=== PATIENT | male | born 1975 | race Two or more races ===

== ENCOUNTER 2019-12-30 17:36 | Inpatient (IN) | payer MEDICAID ==
[~2019-12-30] VITALS: Ht 180.3 cm; Wt 101.2 kg
[2019-12-30 18:49] LABS: BASOPHILS % (AUTO) 0.9 % (0.0-2.0); EOSINOPHILS % (AUTO) 0.4 % (1.0-6.0); HEMATOCRIT 48.9 % (41-53); LYMPHOCYTES # (AUTO) 3.1 K/uL (1.0-4.8); LYMPHOCYTES % (AUTO) 28.8 % (22.0-44.0); MEAN CORPUSCULAR HEMOGLOBIN 31.3 pg (26.0-34.0); MEAN CORPUSCULAR HGB CONC 34.8 G/dL (31.0-37.0); MEAN CORPUSCULAR VOLUME 90 fL (80-100); MONOCYTES # (AUTO) 0.6 K/uL (0.1-1.0); MONOCYTES % (AUTO) 5.3 % (2.0-9.0); NEUTROPHILS # (AUTO) 7.1 K/uL (1.8-7.7); NEUTROPHILS % (AUTO) 64.6 % (40.0-70.0); PLATELET COUNT (AUTO) 208 K/uL (150-450); RED BLOOD CELL COUNT(AUTO) 5.43 MIL/uL (4.50-5.90); RED CELL DISTRIBUTION WIDTH 12.5 % (11.5-14.5)
[2019-12-30] MEDS ORDERED: ATOR40TA71 PO (18:55)
[2019-12-30] MEDS ORDERED: METF-960 PO (18:55)
[2019-12-30] MEDS ORDERED: GABA-583 PO (18:55)
[2019-12-30] MEDS ORDERED: DIPH25CA85 PO (18:55)
[2019-12-30] MEDS ORDERED: OMEP20 PO (18:55)
[2019-12-30] MEDS ORDERED: LISI-657 PO (18:55)
[2019-12-30] MEDS ORDERED: FENO50CA4 PO (18:55)
[2019-12-30 19:00] LABS: ANION GAP 9 mmol/L (8-16); CALCIUM, TOTAL 9.3 mg/dL (8.8-10.5); CARBON DIOXIDE 24 mmol/L (22-29); CHLORIDE 102 mmol/L (98-107); CREATININE 1.13 mg/dL (0.60-1.30); GLOMERULAR FILTR. RATE CALC > 60 mL/min (>60); GLUCOSE,RANDOM 247 mg/dL (70-110); POTASSIUM 3.4 mmol/L (3.5-5.1); SODIUM SERUM 135 mmol/L (136-145); UREA NITROGEN, BLOOD 7 mg/dL (7-18)
[2019-12-30 19:07] LABS: ALANINE AMINOTRANSFERASE 21 U/L (12-78); ALBUMIN 3.9 g/dL (3.4-5.0); ALKALINE PHOSPHATASE 93 U/L (46-116); ASPARTATE AMINOTRANSFERASE 15 U/L (15-37); BILIRUBIN,TOTAL 0.7 mg/dL (0.1-1.0); TOTAL PROTEIN, SERUM 7.3 g/dL (6.4-8.2)
[2019-12-30 20:30] LABS: AMPHET/METH SCREEN,URINE POSITIVE (NEGATIVE); BARBITURATE SCREEN, URINE NEGATIVE (NEGATIVE); BENZODIAZEPINES SCREEN,URINE NEGATIVE (NEGATIVE); CANNABINOID SCREEN,URINE NEGATIVE (NEGATIVE); COCAINE SCREEN,URINE NEGATIVE (NEGATIVE); METHADONE SCREEN, URINE NEGATIVE (NEGATIVE); OPIATE SCREEN,URINE NEGATIVE (NEGATIVE)
[2019-12-30] MEDS ORDERED: LORazepam 1 MG TABLET PO ONE (20:30)
[2019-12-30] MEDS ORDERED: MetFORMIN HCL 500 MG TABLET PO ONE (20:30)
[2019-12-30] MEDS ORDERED: ZOLPIDEM TARTRATE 10 MG TABLET PO PRN (20:30)
[2019-12-30] MEDS ORDERED: LORazepam 2 MG TABLET PO PRN (20:30)
[2019-12-30] MEDS ORDERED: OLANZapine 5 MG TABLET PO ONE (20:30)
[2019-12-30] MEDS ORDERED: INSULIN REGULAR, HUMAN 100 UNITS/ML SQ ONE (20:30)
[2019-12-30] MEDS ORDERED: OLANZapine 5 MG RAPDIS TABLET PO PRN (20:30)
[2019-12-30 20:38] LABS: PHENCYCLIDINE SCREEN,URINE NEGATIVE (NEGATIVE)
[2019-12-30 21:14] LABS: COVID AG,FIA SOURCE NASOPHARYNGEAL
[2019-12-31] MEDS ORDERED: ONDANSETRON HCL 4 MG TABLET PO PRN (07:45)
[2019-12-31] MEDS ORDERED: ALBUTEROL SULFATE HFA 90 MCG/PUFF 8 GM INHALER IH PRN (07:45)
[2019-12-31] MEDS ORDERED: POTASSIUM CHLORIDE 20 MEQ ER TABLET PO ONE (07:45)
[2019-12-31] MEDS ORDERED: IBUPROFEN 600 MG TABLET PO PRN (07:45)
[2019-12-31] MEDS ORDERED: BACITRACIN 28 GM OINTMENT TP PRN (07:45)
[2019-12-31] MEDS ORDERED: GLUCAGON,HUMAN RECOMBINANT 1 MG VIAL IM PRN (07:45)
[2019-12-31] MEDS ORDERED: DOCUSATE SODIUM 100 MG CAPSULE PO PRN (07:45)
[2019-12-31] MEDS ORDERED: CloNIDine HCL 0.1 MG TABLET PO PRN (07:45)
[2019-12-31] MEDS ORDERED: PETROLATUM,WHITE 28 GM JELLY TP PRN (07:45)
[2019-12-31] MEDS ORDERED: LOPERAMIDE HCL 2 MG CAPSULE PO PRN (07:45)
[2019-12-31] MEDS ORDERED: OMEPRAZOLE 20 MG CAPSULE PO PRN (07:45)
[2019-12-31] MEDS ORDERED: ACETAMINOPHEN 325 MG TABLET PO PRN (07:45)
[2019-12-31] MEDS ORDERED: MAGNESIUM HYDROXIDE SUSPENSION 30 ML UDCUP PO PRN (07:45)
[2019-12-31] MEDS ORDERED: MAG HYDROX/AL HYDROX/SIMETH ES 30 ML SUSPENSION UDCUP PO PRN (07:45)
[2019-12-31] MEDS ORDERED: BENZOCAINE/MENTHOL LOZENGE PO PRN (07:45)
[2019-12-31] MEDS: ATORVASTATIN CALCIUM 40 MG TABLET PO SCH (09:04)
[2019-12-31 10:00] VITALS: BP 117/84
[2019-12-31] MEDS: LISINOPRIL 10 MG TABLET PO SCH (10:01)
[2019-12-31] MEDS: HYDROCHLOROTHIAZIDE 25 MG TABLET PO SCH (10:02)
[2019-12-31] MEDS: INSULIN LISPRO 100 UNITS/ML SQ PRN ×3 (11:12→21:10)
[2019-12-31 11:27] LABS: GLUCOMETER DEV NAME(LOC) BV2S.; GLUCOSE,POINT OF CARE 188 MG/DL (70-110)
[2019-12-31] MEDS ORDERED: INFLUENZA VIRUS VACCINE QVS 2020-21 (6MO+)/PF 60 MCG/0.5 ML SYRINGE IM ONE (13:30)
[2019-12-31] MEDS: FENOFIBRATE 48 MG TABLET PO SCH (16:29)
[2019-12-31 16:30] VITALS: BP 109/78
[2019-12-31 16:39] LABS: GLUCOMETER DEV NAME(LOC) BV2S.; GLUCOSE,POINT OF CARE 187 MG/DL (70-110)
[2019-12-31] MEDS: MetFORMIN HCL 500 MG TABLET PO SCH (16:51)
[2019-12-31] MEDS ORDERED: GuaiFENesin/D-METHORPHAN [SUGAR-FREE] 200-20MG/10 ML SYRUP UDCUP PO PRN (17:00)
[2019-12-31] MEDS: THIAMINE 100 MG TABLET PO SCH (17:00)
[2019-12-31] MEDS ORDERED: HydrOXYzine PAMOATE 50 MG CAPSULE PO PRN (17:00)
[2019-12-31] MEDS: OLANZapine 5 MG RAPDIS TABLET PO SCH (20:52)
[2019-12-31 22:05] LABS: GLUCOMETER DEV NAME(LOC) BV2S.; GLUCOSE,POINT OF CARE 207 MG/DL (70-110)
[2020-01-01 06:07] VITALS: BP 127/77
[2020-01-01 06:10] LABS: GLUCOMETER DEV NAME(LOC) BV2S.; GLUCOSE,POINT OF CARE 172 MG/DL (70-110)
[2020-01-01] MEDS: INSULIN LISPRO 100 UNITS/ML SQ PRN ×3 (06:34→16:56)
[2020-01-01 08:08] VITALS: BP 105/68
[2020-01-01 09:09] LABS: CHOL/HDL RATIO 3.9 (4.2-7.3); FREE T4 (FREE THYROXINE) 1.34 ng/dL (0.76-1.46); POTASSIUM 3.3 mmol/L (3.5-5.1); THYROID STIMULATING HORMONE 0.4 uIU/mL (0.36-3.74)
[2020-01-01] MEDS: OMEGA-3/DHA/EPA/FISH OIL 1,000 MG CAPSULE PO SCH (10:07)
[2020-01-01] MEDS: LISINOPRIL 10 MG TABLET PO SCH (10:08)
[2020-01-01] MEDS: HYDROCHLOROTHIAZIDE 25 MG TABLET PO SCH (10:08)
[2020-01-01] MEDS: FLUoxetine HCL 20 MG CAPSULE PO SCH (10:08)
[2020-01-01] MEDS: FOLIC ACID 1 MG TABLET PO SCH (10:08)
[2020-01-01] MEDS: MULTIVITAMINS WITH MINERALS, THERAPEUTIC TABLET PO SCH (10:09)
[2020-01-01] MEDS: THIAMINE 100 MG TABLET PO SCH ×2 (10:09→16:55)
[2020-01-01] MEDS: ATORVASTATIN CALCIUM 40 MG TABLET PO SCH (10:09)
[2020-01-01] MEDS: NALTREXONE HCL 50 MG TABLET PO SCH (10:09)
[2020-01-01] MEDS: FENOFIBRATE 48 MG TABLET PO SCH (10:20)
[2020-01-01] MEDS ORDERED: PALIPERIDONE PALMITATE 234 MG/1.5 ML SYRINGE IM ONE (14:45)
[2020-01-01 16:07] LABS: GLUCOMETER DEV NAME(LOC) BV2S.; GLUCOSE,POINT OF CARE 228 MG/DL (70-110)
[2020-01-01 16:07] LABS: GLUCOMETER DEV NAME(LOC) BV2S.; GLUCOSE,POINT OF CARE 188 MG/DL (70-110)
[2020-01-01 16:29] VITALS: BP 109/74
[2020-01-01] MEDS: MetFORMIN HCL 500 MG TABLET PO SCH (16:55)
[2020-01-01 16:58] LABS: GLUCOMETER DEV NAME(LOC) BV2S.; GLUCOSE,POINT OF CARE 214 MG/DL (70-110)
[2020-01-01] MEDS: OLANZapine 5 MG RAPDIS TABLET PO SCH (21:06)
[2020-01-01 22:49] LABS: GLUCOMETER DEV NAME(LOC) BV2S.; GLUCOSE,POINT OF CARE 137 MG/DL (70-110)
[2020-01-02 00:24] VITALS: BP 114/72
[2020-01-02 06:17] LABS: GLUCOMETER DEV NAME(LOC) BV2S.; GLUCOSE,POINT OF CARE 166 MG/DL (70-110)
[2020-01-02] MEDS: INSULIN LISPRO 100 UNITS/ML SQ PRN ×2 (06:56→12:19)
[2020-01-02] MEDS ORDERED: HYDR-1475 PO (08:06)
[2020-01-02] MEDS ORDERED: NALT50TA6 PO (08:06)
[2020-01-02] MEDS ORDERED: FLUO-191 PO ×2 (08:06→11:44)
[2020-01-02] MEDS ORDERED: OLAN5TAB40 PO (08:06)
[2020-01-02 08:08] VITALS: BP 114/70
[2020-01-02] MEDS: FOLIC ACID 1 MG TABLET PO SCH (09:31)
[2020-01-02] MEDS: OMEGA-3/DHA/EPA/FISH OIL 1,000 MG CAPSULE PO SCH (09:31)
[2020-01-02] MEDS: ATORVASTATIN CALCIUM 40 MG TABLET PO SCH (09:31)
[2020-01-02] MEDS: LISINOPRIL 10 MG TABLET PO SCH (09:32)
[2020-01-02] MEDS: FLUoxetine HCL 20 MG CAPSULE PO SCH (09:32)
[2020-01-02] MEDS: NALTREXONE HCL 50 MG TABLET PO SCH (09:32)
[2020-01-02] MEDS: HYDROCHLOROTHIAZIDE 25 MG TABLET PO SCH (09:32)
[2020-01-02] MEDS: THIAMINE 100 MG TABLET PO SCH (09:33)
[2020-01-02] MEDS: MULTIVITAMINS WITH MINERALS, THERAPEUTIC TABLET PO SCH (09:33)
[2020-01-02] MEDS: FENOFIBRATE 48 MG TABLET PO SCH (09:33)
[2020-01-02 11:44] LABS: GLUCOMETER DEV NAME(LOC) BV2S.; GLUCOSE,POINT OF CARE 255 MG/DL (70-110)
[2020-01-02] MEDS ORDERED: PALI117D IM (11:44)
[2020-01-02] MEDS ORDERED: NALT50TA PO (11:44)
[2020-01-02] MEDS ORDERED: OMEG-135 PO (11:44)
[2020-01-02] MEDS ORDERED: PALI156D IM (11:44)
== END 2020-01-02 14:20 | disposition home or self-care (01) | DRG 750 ==
LOC: EMS 17:36 → 3EI 20:18 → UNDOADMIN 20:18 → B2S 20:18
PROVIDERS: ADMIT Psychiatry & Neurology Psychiatry; ATTEND Psychiatry & Neurology Psychiatry
DX: F25.9 Schizoaffective disorder, unspecified (principal); E11.65 Type 2 diabetes mellitus with hyperglycemia; E78.00 Pure hypercholesterolemia, unspecified; E78.5 Hyperlipidemia, unspecified; F15.10 Other stimulant abuse, uncomplicated; I10 Essential (primary) hypertension; I25.10 Atherosclerotic heart disease of native coronary artery without angina pectoris; R45.851 Suicidal ideations; K21.9 Gastro-esophageal reflux disease without esophagitis; Z20.828 Contact with and (suspected) exposure to other viral communicable diseases; E66.9 Obesity, unspecified; E87.6 Hypokalemia; G47.00 Insomnia, unspecified; K59.00 Constipation, unspecified; F41.9 Anxiety disorder, unspecified; F19.10 Other psychoactive substance abuse, uncomplicated; F33.2 Major depressive disorder, recurrent severe without psychotic features; Z55.9 Problems related to education and literacy, unspecified; Z59.9 Problem related to housing and economic circumstances, unspecified; Z65.3 Problems related to other legal circumstances; Z68.31 Body mass index [BMI] 31.0-31.9, adult; Z79.899 Other long term (current) drug therapy; Z79.84 Long term (current) use of oral hypoglycemic drugs
CPT/HCPCS: 84132; 84295; 84439; 84443; 87426; 90686; G0480; J1815